=== PATIENT | male | born 1985 | race Hispanic/Latino ===

== ENCOUNTER 2024-04-28 10:20 | Emergency (ER) | payer BC, OTHER ==
[2024-04-28] MEDS ORDERED: Ibuprofen 800 MG TAB ONE (12:37)
== END 2024-04-28 12:45 | disposition home or self-care (01) ==
LOC: ERS 10:20
DX: S62.300A Unspecified fracture of second metacarpal bone, right hand, initial encounter for closed fracture (principal); S62.302A Unspecified fracture of third metacarpal bone, right hand, initial encounter for closed fracture; V89.2XXA Person injured in unspecified motor-vehicle accident, traffic, initial encounter
CPT/HCPCS: 29125